=== PATIENT | male | born 1975 | race Hispanic/Latino ===

== ENCOUNTER 2020-12-14 16:11 | Emergency (ER) | payer BC, OTHER ==
[2020-12-14] MEDS ORDERED: Ventolin HFA Inhaler 60 PUFF INHALER ONE (17:17)
[2020-12-14] MEDS ORDERED: Dexamethasone 4 MG TAB ONE (17:18)
[2020-12-14] MEDS ORDERED: Sodium Chloride 0.9% 1,000 ML ONE ×2 (17:18→20:32)
[2020-12-14 18:03] LABS: #Lymphocytes 0.5 thou/uL (1.20-3.40); #Monocytes 0.4 thou/uL (0.11-0.59); #Neutrophils 8.6 thou/uL (1.40-6.50); %Basophils 0.2 % (0.0-1.0); %Lymphocytes 4.8 % (21.0-51.0); %Neutrophils 91.1 % (42.0-75.0); Hemoglobin 17.5 g/dL (14.0-18.0); Mean Corpuscular HGB CONC 31.3 g/dL (32.0-36.0); Mean Corpuscular Hemoglobin 28.9 pg (27.0-31.0); Mean Corpuscular Volume 92.1 fL (78.0-98.0); Mean Platelet Volume 8.2 fL (7.4-10.4); Platelet Count 220 thou/uL (130-400); RBC Distribution Width 11.6 % (11.5-14.5); Red Blood Cell (RBC) Count 6.06 mill/uL (4.70-6.10); White Blood Cell (WBC) Count 9.4 thou/uL (4.8-10.8)
[2020-12-14 18:07] LABS: ALT (SGPT) 52 U/L (8-55); AST (SGOT) 57 U/L (5-34); Albumin 3.8 g/dL (3.5-5.0); Alkaline Phosphatase 88 U/L (40-110); Anion Gap 19 mmol/L (10-20); BUN (Urea Nitrogen) 12 mg/dL (8.9-20.6); Bilirubin, Total 0.7 mg/dL (0.2-1.2); Calc. Creatinine Clearance 0 mL/min (70-130); Calcium 9.3 mg/dL (7.8-10.44); Carbon Dioxide 19 mmol/L (22-29); Chloride 105 mmol/L (98-107); Globulin 4.2 g/dL (2.4-3.5); Glucose 153 mg/dL (70-105); Sodium 138 mmol/L (136-145)
[2020-12-14] MEDS ORDERED: Sodium Chloride 0.9% 100 ML ONE (19:38)
[2020-12-14] MEDS ORDERED: cefTRIAXone\\ROCEPHIN 1 GM VIAL ONE (19:38)
== END 2020-12-14 21:43 | disposition short-term general hospital (02) ==
LOC: NAV ERS 16:11
DX: U07.1 COVID-19 (principal); R09.02 Hypoxemia; Z87.891 Personal history of nicotine dependence
CPT/HCPCS: 71046; 80053; 83605; 83880; 84484; 85025; 93005; 94760; 96365; J0696; J3490; J7050; J8540